=== PATIENT | female | born 1970 | race Caucasian/White ===

== ENCOUNTER 2017-07-08 10:00 | Emergency (ER) | payer SELFPAY, OTHER ==
[2017-07-08] MEDS: NORCO, ANEXSIA 5/325MG TABLET (HYDROcodone/ACETAMINOPHEN) PO (11:13)
== END 2017-07-08 12:37 | disposition home or self-care (01) ==
LOC: M ED 10:00
DX: S93.502A Unspecified sprain of left great toe, initial encounter (principal); S93.505A Unspecified sprain of left lesser toe(s), initial encounter; W22.8XXA Striking against or struck by other objects, initial encounter; Y92.018 Other place in single-family (private) house as the place of occurrence of the external cause; Z88.8 Allergy status to other drugs, medicaments and biological substances
CPT/HCPCS: 73630

== ENCOUNTER 2017-07-08 13:32 | Emergency (ER) | payer SELFPAY | END 2017-07-08 16:05 | disposition home or self-care (01) | LOC: M ED 13:32 | DX: T78.40XA Allergy, unspecified, initial encounter (principal); Y92.9 Unspecified place or not applicable; Y93.9 Activity, unspecified; F41.9 Anxiety disorder, unspecified; Z88.6 Allergy status to analgesic agent | CPT/HCPCS: 99283 ==

== ENCOUNTER 2017-11-01 21:03 | Emergency (ER) | payer BC ==
[2017-11-01] MEDS: KETOROLAC 30 MG/ML VIAL (J1885) IM (20:29)
== END 2017-11-01 21:42 | disposition home or self-care (01) ==
LOC: M ED 21:03
DX: S69.91XA Unspecified injury of right wrist, hand and finger(s), initial encounter (principal); W23.0XXA Caught, crushed, jammed, or pinched between moving objects, initial encounter; Y92.9 Unspecified place or not applicable; Y93.9 Activity, unspecified; Y99.9 Unspecified external cause status; Z85.528 Personal history of other malignant neoplasm of kidney; Z90.5 Acquired absence of kidney; Z88.6 Allergy status to analgesic agent; Z88.5 Allergy status to narcotic agent
CPT/HCPCS: J1885

== ENCOUNTER → 2017-12-27 | Outpatient (CLI) | payer BC | LOC: M WUC 18:47 | DX: M25.522 Pain in left elbow (principal) | CPT/HCPCS: 73080 ==

== ENCOUNTER 2018-03-12 11:08 | Emergency (ER) | payer BC | END 2018-03-12 13:20 | disposition home or self-care (01) | LOC: M ED 11:08 | DX: M25.562 Pain in left knee (principal); M79.672 Pain in left foot; Z85.528 Personal history of other malignant neoplasm of kidney; Z88.5 Allergy status to narcotic agent; Z88.8 Allergy status to other drugs, medicaments and biological substances | CPT/HCPCS: 73564 ==

== ENCOUNTER → 2018-04-04 | Outpatient (REF) | payer BC ==
[2018-04-04 20:26] LABS: BASO # 0.1 10^3/uL (0.0-0.2); BASO % 0.8 % (0.0-1.0); EOS # 0.2 10^3/uL (0.0-0.50); EOS % 2.8 % (0.0-3.0); HEMATOCRIT 46.5 % (36.0-47.0); HEMOGLOBIN 14.8 g/dl (12.0-15.5); IMMATURE GRANULOCYTE % 0.2 % (0-3.0); LYMPH # 1.9 10^3/uL (1.5-4.5); MEAN CORPUSCULAR HEMOGLOBIN 28.6 pg (27.0-33.0); MEAN CORPUSCULAR HGB CONC 31.8 g/dl (32.0-36.5); MEAN CORPUSCULAR VOLUME 89.9 fl (80.0-96.0); MONO # 0.4 10^3/uL (0.0-0.8); MONO % 6.1 % (0.0-5.0); NEUTROPHILS # 3.6 10^3/uL (1.8-7.7); NEUTROPHILS % 59.1 % (36.0-66.0); PLATELET COUNT, AUTOMATED 305 10^3/uL (150-450); RED BLOOD COUNT 5.17 10^6/uL (4.00-5.40); RED CELL DISTRIBUTION WIDTH 14.3 % (11.5-14.5); WHITE BLOOD COUNT 6.1 10^3/uL (4.0-10.0)
[2018-04-04 20:30] LABS: AMORPHOUS SEDIMENT MODERATE (NEGATIVE); APPEARANCE, URINE TURBID (CLEAR); BACTERIA, URINE AUTO NEGATIVE (NEGATIVE); BILIRUBIN, URINE AUTO NEGATIVE (NEGATIVE); BLOOD, URINE BLOOD NEGATIVE (NEGATIVE); COLOR, URINE AMBER (YELLOW); GLUCOSE, URINE (UA) AUTO NEGATIVE (NEGATIVE); KETONE, URINE AUTO NEGATIVE (NEGATIVE); LEUKOCYTE ESTERASE, URINE AUTO 2+ (NEGATIVE); MUCUS, URINE SMALL (NEGATIVE); NITRITE, URINE AUTO NEGATIVE (NEGATIVE); PROTEIN, URINE AUTO NEGATIVE (NEGATIVE); RBC, URINE AUTO 2 /HPF (0-3); SPECIFIC GRAVITY URINE AUTO 1.019 (1.002-1.035); SQUAMOUS EPITHELIAL CELL UR AU 7 /HPF (0-6); UROBILINOGEN, URINE AUTO 0.2 mg/dL (0.0-2.0); WBC, URINE AUTO 15 /HPF (0-3)
[2018-04-04 20:38] LABS: ALBUMIN/GLOBULIN RATIO 1.03 (1.00-1.93); ALKALINE PHOSPHATASE 74 U/L (45-117); ALT/SGPT 23 U/L (12-78); ANION GAP 10 MEQ/L (8-16); AST/SGOT 17 U/L (7-37); BILIRUBIN,TOTAL 0.6 MG/DL (0.2-1.0); BLOOD UREA NITROGEN 16 MG/DL (7-18); C REACTIVE PROTEIN QUANTITATIV 0.38 MG/DL (0.00-0.30); CALCIUM LEVEL 9.8 MG/DL (8.5-10.1); CARBON DIOXIDE LEVEL 26 MEQ/L (21-32); CHLORIDE LEVEL 106 MEQ/L (98-107); CHOLESTEROL LEVEL 195 MG/DL (<200); CHOLESTEROL RISK RATIO 4.062 (<5); CREATININE FOR GFR 1.03 MG/DL (0.55-1.30); FREE T4 1.03 NG/DL (0.76-1.46); GLOMERULAR FILTRATION RATE > 60.0 (>58); GLUCOSE, FASTING 92 MG/DL (70-100); HDL CHOLESTEROL 48 MG/DL (>40); LDL CHOLESTEROL 118 MG/DL (<100); NON-HDL-C 147 MG/DL; POTASSIUM SERUM 4.4 MEQ/L (3.5-5.1); SODIUM LEVEL 142 MEQ/L (136-145); TOTAL PROTEIN 7.9 GM/DL (6.4-8.2); TRIGLYCERIDES LEVEL 143 MG/DL (<150)
[2018-04-04 20:50] LABS: TOTAL 25(OH) VITAMIN D 21.7 NG/ML (30.0-100.0)
[2018-04-07 00:06] LABS: ANA (HEP2) Positive (.); Lyme Disease IgG/IgM Antibodie <0.91 ISR (0.00-0.90); Lyme Disease IgM Ab Quantitati <0.80 index (0.00-0.79)
== END ==
LOC: M SFHCADAM 11:28
DX: C64.2 Malignant neoplasm of left kidney, except renal pelvis (principal); E55.9 Vitamin D deficiency, unspecified; M25.562 Pain in left knee; E66.9 Obesity, unspecified; M79.672 Pain in left foot; M79.671 Pain in right foot
CPT/HCPCS: 80053

== ENCOUNTER 2018-04-25 16:30 | Emergency (ER) | payer BC ==
[2018-04-25] MEDS: IBUPROFEN 800 MG TAB PO (16:53)
== END 2018-04-25 17:57 | disposition home or self-care (01) ==
LOC: M ED 16:30
DX: S50.02XA Contusion of left elbow, initial encounter (principal); W00.9XXA Unspecified fall due to ice and snow, initial encounter; Y92.009 Unspecified place in unspecified non-institutional (private) residence as the place of occurrence of the external cause; Z88.8 Allergy status to other drugs, medicaments and biological substances; Z88.6 Allergy status to analgesic agent
CPT/HCPCS: 73080

== ENCOUNTER → 2018-04-25 | Outpatient (CLI) | payer BC | LOC: M LABDRWAD 13:49 | DX: C64.2 Malignant neoplasm of left kidney, except renal pelvis (principal) | CPT/HCPCS: 71046 ==

== ENCOUNTER → 2018-04-25 | Outpatient (REF) | payer BC ==
[2018-04-25 19:04] LABS: URIC ACID 5.5 MG/DL (2.6-6.0)
[2018-04-25 19:04] LABS: RHEUMATOID FACTOR QUANT < 10.0 IU/ML (<15.0)
[2018-04-25 19:43] LABS: ERYTHROCYTE SEDIMENTATION RATE 31 mm/hr (0-20)
[2018-04-28 10:08] LABS: CYCLIC CITRULLINATED PEPTIDE 7 units (0-19)
== END ==
LOC: M SFHCADAM 13:28
DX: M79.672 Pain in left foot (principal)
CPT/HCPCS: 84550

== ENCOUNTER → 2018-04-30 | Outpatient (REF) | payer BC ==
[2018-04-30 18:54] LABS: APPEARANCE, URINE CLOUDY (CLEAR); BACTERIA, URINE AUTO 1+ (NEGATIVE); BILIRUBIN, URINE AUTO NEGATIVE (NEGATIVE); BLOOD, URINE BLOOD NEGATIVE (NEGATIVE); COLOR, URINE YELLOW (YELLOW); GLUCOSE, URINE (UA) AUTO NEGATIVE (NEGATIVE); KETONE, URINE AUTO NEGATIVE (NEGATIVE); LEUKOCYTE ESTERASE, URINE AUTO NEGATIVE (NEGATIVE); MUCUS, URINE SMALL (NEGATIVE); NITRITE, URINE AUTO NEGATIVE (NEGATIVE); PROTEIN, URINE AUTO NEGATIVE (NEGATIVE); RBC, URINE AUTO 2 /HPF (0-3); SPECIFIC GRAVITY URINE AUTO 1.018 (1.002-1.035); SQUAMOUS EPITHELIAL CELL UR AU 15 /HPF (0-6); UROBILINOGEN, URINE AUTO 0.2 mg/dL (0.0-2.0); WBC, URINE AUTO 2 /HPF (0-3)
== END ==
LOC: M SMT 16:54
DX: C64.2 Malignant neoplasm of left kidney, except renal pelvis (principal)
CPT/HCPCS: 87186

== ENCOUNTER → 2018-05-27 | Outpatient (CLI) | payer BC ==
[~2018-05-27] MED LIST: DOCU10ELUD PO; IBUP200T2 PO; ISOVUE-370 76% 100ML VIAL (Q9967) As Ordered ONE; NAPR-885 PO; NO HISTORICAL MEDS; NORCOBULK PO; PERC5TAB PO; PERC5TAB12 PO; ROBA500T PO; TYLE325T5 PO
--- NOTE | 2018-05-29 07:28 | REP ---
Clinical: History of left renal neoplasm. Technique: Axial contrast enhanced images from the lung bases to the pubic symphysis using 100 ml Isovue 370 intravenous contrast material with coronal and sagittal re-formations. Precontrast and delayed images of the abdomen obtained. Comparison: 11/17/2014. Findings: Lung bases are clear. Visualized heart and pericardium normal. Liver, spleen, pancreas, bilateral adrenal glands and right kidney are normal. The patient is noted to be status post cholecystectomy and partial left nephrectomy. No obvious recurrent renal lesion or adenopathy appreciated. The enteric system is without obstruction or acute inflammatory process. Pelvis demonstrates normal bladder and age-appropriate uterus/adnexa. No ascites. No adenopathy. No free air. 1 cm fat containing periumbilical hernia unchanged. Abdominal aorta and vasculature without aneurysm or dissection. Musculoskeletal structures demonstrate degenerative changes without focal osseous abnormality. Impression: 1. Evidence for prior partial left nephrectomy without evidence for recurrence or metastatic disease. 2. Prior cholecystectomy. 3. No acute abdominopelvic pathology appreciated. Electronically Signed by Efe Bergman MD 05/29/2018 07:18 A
== END ==
LOC: M RAD 07:53
PROVIDERS: ATTEND Nurse Practitioner Women's Health
DX: C64.2 Malignant neoplasm of left kidney, except renal pelvis (principal)
CPT/HCPCS: 74178; Q9967

== ENCOUNTER → 2018-06-05 | Outpatient (REF) | payer BC ==
[~2018-06-05] MED LIST changes: -ISOVUE-370 76% 100ML VIAL (Q9967) As Ordered ONE
[2018-06-08 15:16] LABS: HPV HYBRID CAPTURE II Negative (Negative)
== END ==
LOC: M SFHCWAGY 14:12
PROVIDERS: ATTEND Nurse Practitioner Women's Health
DX: Z12.4 Encounter for screening for malignant neoplasm of cervix (principal)

== ENCOUNTER → 2018-06-05 | Outpatient (CLI) | payer BC ==
--- NOTE | 2018-06-05 18:26 | REPMRS ---
Patient History The patient states she had a clinical breast exam in 06/08 Patient is postmenopausal and has history of renal cancer at age 42. No known family history of cancer. Digital Woman Screen Mammo: June 05, 2018 - Exam #: [id number] Bilateral CC and MLO view(s) were taken. Technologist: Ju Mazariegos, Technologist Prior study comparison: July 31, 2014, digital woman screen mammo performed at [facility]. July 30, 2013, digital woman screen mammo performed at [facility]. FINDINGS: The breast tissue is heterogeneously dense. This may lower the sensitivity of mammography. There is a moderate amount of heterogeneously dense fibroglandular tissue which is fairly symmetric. There is no interval development of dominant mass, architectural distortion, or clustered microcalcification typical of malignancy. There has been no change in the appearance of the mammogram from the prior studies. 3-D tomosynthesis shows no additional findings. Assessment: BI-RADS/ACR category 1 mammogram. Negative. Recommendation Routine screening mammogram of both breasts in 1 year (for women over age 40). This patient's Lifetime Breast Cancer RIsk is estimated at 8.9 %. This mammogram was interpreted with the aid of an FDA-approved computer-aided dectection system. Electronically Signed By: Isma Robertson MD 06/05/18 [id number]
== END ==
LOC: M WHC 13:53
PROVIDERS: ATTEND Physician Assistant Medical
DX: Z12.31 Encounter for screening mammogram for malignant neoplasm of breast (principal); Z78.0 Asymptomatic menopausal state; Z85.528 Personal history of other malignant neoplasm of kidney

== ENCOUNTER → 2018-06-06 | Outpatient (CLI) | payer BC ==
--- NOTE | 2018-06-07 02:39 | REP ---
Clinical: Back pain and weakness . Technique: AP, lateral, bilateral oblique, and coned-down views. Findings: Alignment and lordosis is maintained. The vertebral bodies including transverse process and spinous processes are intact and there is no evidence for acute fracture / compression injury or subluxation. No evidence for spondylolysis or spondylolisthesis. Lateral views best demonstrate hypertrophic facet changes at L4-5 and L5-S1 along with mild endplate sclerosis and disc space narrowing at L5-S1. Impression: Mild degenerative changes at L5-S1. Electronically Signed by Efe Bergman MD 06/07/2018 02:30 A
== END ==
LOC: M ADAMS 13:22
PROVIDERS: ATTEND Physician Assistant Medical
DX: R20.2 Paresthesia of skin (principal); R53.1 Weakness; M51.36 Other intervertebral disc degeneration, lumbar region

== ENCOUNTER 2018-08-21 12:55 | Outpatient (RCR) | payer BC ==
[~2018-08-21 12:55] MED LIST changes: -DOCU10ELUD PO; +DOCU5LIQ PO
== END 2018-09-17 ==
LOC: M PT 12:55
PROVIDERS: ATTEND Physician Assistant Medical
DX: R20.2 Paresthesia of skin (principal)

== ENCOUNTER → 2018-08-22 | Outpatient (CLI) | payer BC ==
--- NOTE | 2018-08-22 13:02 | REP ---
Left femur: Four views. History: Left hip pain. Comparison left knee radiographs are from March 12, 2018. Findings: Left femoral head is smooth and rounded and hip joint spaces preserved. Periarticular soft tissues are intact. Femoral diaphysis and distal femur appear intact. A normal fabella is noted posterolaterally. Bones joints and soft tissues are unremarkable. Impression: Negative radiographs of the left femur. Electronically Signed by Kris Robertson MD 08/22/2018 12:53 P
== END ==
LOC: M ADAMS 11:43
PROVIDERS: ATTEND Physician Assistant Medical
DX: M25.552 Pain in left hip (principal)

== ENCOUNTER → 2018-08-28 | Outpatient (CLI) | payer BC ==
--- NOTE | 2018-08-29 08:16 | REP ---
MRI lumbar spine without contrast: History: Left foot drop. Rule out stenosis versus disc herniation. Low back pain. Comparison lumbar spine radiographs June 06, 2018. Comparison is made with imaging from CT study dated May 27, 2018. Technique: Sagittal and axial T1 and T2-weighted scans are acquired in the usual fashion with and without fat saturation. Sequences include spin echo, turbo spin-echo, and STIR imaging sequences. MRI findings: Lumbar vertebral body heights are preserved. There is straightening. Alignment is otherwise normal. No bony destructive lesion is seen. Cortical and medullary bone signal intensity are normal. There is no evidence of spondylolysis or spondylolisthesis. The tip of the conus medullaris is normal in position and appearance at the upper margin of L1. There is some cortical scarring along the posterolateral cortex of the left kidney noted incidentally. The patient has a history of partial left nephrectomy. No other extravertebral abnormality. Axial and sagittal images at the L1-L2 disc level show diffuse disc bulging mild in degree indenting the ventral margin of the thecal sac. No canal stenosis is seen. No neural foraminal lesion is noted. At L2-3, there is also diffuse disc bulging indenting the ventral margin of the thecal sac. This contributes to mild central canal stenosis along with developmentally short pedicles and mild ligamentum flavum hypertrophy as well as some dorsal epidural fat. The thecal sac and L2-3 measures 9 mm in the midline in anteroposterior dimension. No neural foraminal encroachment. At L3-4, there is mild central canal stenosis noted due to the same factors, diffuse disc bulging, ligamentum flavum hypertrophy, facet hypertrophy, and some dorsal epidural fat. The thecal sac measures 9 mm in AP dimension at the midline at L3-4. The osteoarthritic facet hypertrophy is more prominent bilaterally. It is a little more advanced on the left than the right. There is a left foraminal and left lateral disc protrusion at L3-4 which abuts the extradural nerve root and produces mild neural foraminal narrowing. At L4-5, there is minimal diffuse disc bulging indenting the thecal sac margin. Moderate osteoarthritic facet and ligamentum flavum hypertrophy are seen. Canal size is mildly narrowed. Midline AP dimension of the thecal sac is 9.5 mm. No focal disc protrusion is seen. No neural foraminal encroachment is observed. At L5-S1, there is mild facet hypertrophy. Central disc bulging is seen without thecal sac compression. There is minimal neural foraminal narrowing on the left. Impression: Degenerative spondylosis changes. Moderate osteoarthritic facet disease. Multilevel mild central canal stenosis L2-3 through L4-5. Left foraminal and left lateral disc protrusion at L3-4. Minimal left neural foraminal narrowing L5-S1. Electronically Signed by Kris Robertson MD 08/29/2018 06:30 P
== END ==
LOC: M RAD 17:28
PROVIDERS: ATTEND Physician Assistant
DX: M21.372 Foot drop, left foot (principal); M48.061 Spinal stenosis, lumbar region without neurogenic claudication; M51.26 Other intervertebral disc displacement, lumbar region; M47.816 Spondylosis without myelopathy or radiculopathy, lumbar region

== ENCOUNTER → 2019-06-06 | Outpatient (CLI) | payer BC ==
--- NOTE | 2019-06-06 17:23 | REPMRS ---
Patient History The patient states she had a clinical breast exam in 2019. No known family history of cancer. Digital Woman Screen Mammo: June 06, 2019 - Exam #: [id number] Bilateral CC and MLO view(s) were taken. Technologist: Kesha Lara, Technologist Prior study comparison: June 05, 2018, bilateral digital woman screen mammo performed at [facility]. July 31, 2014, digital woman screen mammo performed at [facility]. July 30, 2013, digital woman screen mammo performed at [facility]. FINDINGS: The breast tissue is heterogeneously dense. This may lower the sensitivity of mammography. There is a moderate amount of heterogeneously dense fibroglandular tissue which is fairly symmetric. There is no interval development of dominant mass, architectural distortion, or grouped microcalcification typical of malignancy. There has been no change in the appearance of the mammogram from the prior studies. 3-D tomosynthesis shows no additional findings. Assessment: BI-RADS/ACR category 0 mammogram, Incomplete: Need additional imaging evaluation and/or prior mammograms for comparison. Recommendation Ultrasound and special view mammogram of the right breast. This patient's Lifetime Breast Cancer RIsk is estimated at 8.7 %. This mammogram was interpreted with the aid of an FDA-approved computer-aided dectection system. Electronically Signed By: Isma Robertson MD 06/06/19 [id number]
== END ==
LOC: M WHC 11:06
PROVIDERS: ATTEND Nurse Practitioner Women's Health
DX: Z12.31 Encounter for screening mammogram for malignant neoplasm of breast (principal); N63.11 Unspecified lump in the right breast, upper outer quadrant

== ENCOUNTER → 2019-06-26 | Outpatient (REF) | payer BC | LOC: M SFHCPLAZ 18:03 | PROVIDERS: ATTEND Dermatology | DX: L85.9 Epidermal thickening, unspecified (principal); L82.1 Other seborrheic keratosis ==

== ENCOUNTER → 2019-07-01 | Outpatient (CLI) | payer BC ==
--- NOTE | 2019-07-01 12:27 | REP ---
DIGITAL DIAGNOSTIC RIGHT BREAST MAMMOGRAPHY WITH CAD AND FOCUSED RIGHT BREAST SONOGRAPHY: HISTORY: Screening mammography June 06, 2027 was BIRADS category 0 incomplete because of two nodular neodensity is in the upper outer quadrant for which diagnostic imaging was recommended. Comparison mammography June 05, 2018 and July 31, 2014. MAMMOGRAPHIC FINDINGS: Magnified focal spot compression CC, MLO, and true mediolateral projection images are obtained. The nodular opacities persist. The largest is more posterior in the upper outer quadrant measuring 10 mm in greatest diameter with a macro lobulated contour sharply circumscribed. The larger nodule is approximately 5 mm in diameter more anteriorly positioned in the upper outer quadrant. No other suspicious mammographic finding. SONOGRAPHIC FINDINGS: The right breast is scanned through the upper outer quadrant. At 10-o'clock, 4.5 cm from the nipple there is a 9 x 8 x 6 mm complex macrolobulated hypoechoic structure with some internal echoes. The lesion has well-defined back wall and demonstrates enhanced through transmission. It is most compatible with a complex cyst. It does not meet criteria of a simple cyst. At 9-o'clock position in the right breast, 5.7 cm from the nipple there is a 7 x 9 x 5 mm complex hypoechoic structure, which is associated with some acoustic shadowing and a more triangular shape. In the radial projection it appears taller than wide. IMPRESSION: BIRADS category 4 suspicious right breast imaging. Two nodular opacities felt to correspond with two hypoechoic structures sonographically. Ultrasound-guided needle biopsy and marker clip placement is recommended for both of these. Post placement mammography is recommended. This mammogram was interpreted with the aid of an FDA-approved computer-aided detection system. The patient letter being requested is m#4 . Electronically Signed by Kris Robertson MD 07/01/2019 07:58 P
== END ==
LOC: M RAD 09:03
PROVIDERS: ATTEND Nurse Practitioner Women's Health
DX: Z12.31 Encounter for screening mammogram for malignant neoplasm of breast (principal); N63.11 Unspecified lump in the right breast, upper outer quadrant; N63.15 Unspecified lump in the right breast, overlapping quadrants

== ENCOUNTER → 2019-07-07 | Outpatient (REF) | payer BC ==
[2019-07-07 16:21] LABS: PLATELET COUNT, AUTOMATED 333 10^3/uL (150-450)
[2019-07-07 16:32] LABS: INR 0.92; PROTHROMBIN TIME 12.1 SECONDS (11.8-14.0)
[2019-07-07 16:33] LABS: PARTIAL THROMBOPLASTIN TIME 30.6 SECONDS (25.0-38.4)
== END ==
LOC: M LABDRAW1 15:27
PROVIDERS: ATTEND Physician Assistant
DX: M47.27 Other spondylosis with radiculopathy, lumbosacral region (principal)

== ENCOUNTER → 2019-07-11 | Outpatient (CLI) | payer BC ==
[~2019-07-11] MED LIST changes: +ACET1TAB55 PO; +CYCL10TA PO; +ESTR625TA VG; +GABA-1171 PO; +MELO15TA28 PO; +VITAMIN D
--- NOTE | 2019-07-11 14:07 | REP ---
FOCUSED LEFT BREAST SONOGRAPHY: HISTORY: Palpable lump 2-o'clock position 5 cm from the nipple on clinician breast exam. Comparison is made with earlier ultrasound and mammography July 01, 2019. FINDINGS: Scanning in the region of the palpable lump at the 2-o'clock position 5 cm from the nipple today demonstrates normal fibroglandular background echotexture. No cyst or mass is seen sonographically. IMPRESSION: BIRADS category 1 negative findings.
== END ==
LOC: M WHC 11:14
PROVIDERS: ATTEND Surgery
DX: N63.20 Unspecified lump in the left breast, unspecified quadrant (principal)

== ENCOUNTER → 2019-07-15 | Outpatient (CLI) | payer BC ==
[~2019-07-15] MED LIST changes: +ESTR62CR PV
[2019-07-15 09:08] VITALS: BP 142/90
--- NOTE | 2019-07-15 13:25 | ROOPDOC ---
[facility] Report Of Operation Report of Operation DATE OF PROCEDURE: 07/15/19 PREPROCEDURE DIAGNOSES: two right breast lesions POSTPROCEDURE DIAGNOSES: right breast complex cyst at 10:00 and right hypoechoic lesion at 9:00 PROCEDURE: Ultrasound-guided right breast biopsy of the lesion at 9:00 and ultrasound-guided aspiration of complex cyst at 10:00 SURGEON: Marilyn Diggs CHARGE LOADER: ANESTHESIA: local ESTIMATED BLOOD LOSS: Approximately 1 mL. COMPLICATIONS: none REMARKS: Post-biopsy mammogram of the right breast was obtained and showed the clip. The clip, however was not in expected position of mammographically seen nodular opacity at 9:00 which suggest that the sonographic lesion did not correlate with mammographic findings. In addition, the nodular opacity at 10:00 persisted on post procedure mammogram sonographic lesion did not correlate with mammographic findings. Patient was informed about those findings. Postprocedural dressing was placed. DESCRIPTION OF PROCEDURE: Lidocaine 1% LOT [id number] Expiration 06/2020 Sodium Bicarbonate 8.4% LOT 03-018-[id number] Expiration 07/2020 Hydromark clip LOT [id number] Expiration 02/2022 REF 6970-16-77-[id number] Titanium Shape 3 (open spring) Bx device: Voxie [id number] x10 cm LOT HUEN 1024 Expiration 04/2022 Informed consent was obtained in the preop area. The most common risk and possible complications including bleeding, hematoma, bruising, infection, injury to surrounding structures were explained to the patient and she expressed understanding. Patient was taken to the procedure room and placed on the bed in the supine position with the right upper extremity placed above the head. Appropriate time out was done stating patients name, date of , and the procedure to be performed. The right breast was prepped and draped in the usual fashion. The ultrasound was used to confirm the location of the lesions in the right breast at 10:00 4.5 CFN which looked like a complex cyst and at 9:00 5.7 CFN which looked like complex hypoechoic structure with some acoustic shadowing and more triangular shape. Procedure was started focusing at 10:00 with aspiration of the lesion looking like a complex cyst. Plain Lidocaine 1% and 8.4% sodium bicarbonate 10:1 mix was used to numb the skin, the biopsy site and tissues along the anticipated biopsy tract. 18 G needle was used to aspirate fluid from the cystic structures. The fluid was bloody and was sent to pathology for cytological evaluation. The images from cyst aspiration and post aspiration were captured. No biopsy was performed at this site as the complex cyst completely collapsed. Next, our attention was turned toward the more triangular lesion at 9:00. Lidocaine 1% and 8.4% sodium bicarbonate 10:1 mix was used to numb the skin, the biopsy site and tissues along the anticipated biopsy tract. Small skin incision was made with blade number 11. BARD Marquee 14G cannula with introducer ([id number]) was inserted through the incision and advanced under the ultrasound guidance to position immediately adjacent to the lesion. Next, the introducer was removed and BARD Marquee 14G biopsy device was places in the cannula. Pre- biopsy imaging, and post-biopsy imaging were captured. Six core biopsies were taken at various levels of the lesion. Specimen was placed in formaldehyde, labeled with appropriate biopsy site and patient name, and sent to pathology for evaluation. Next, the biopsy device was withdrawn and a clip introducer was inserted into the biopsy site via the cannula. The open spring SHAPE 3 Hydromark clip was deployed under direct vision. Post-clip placement image was captured. Manual pressure over the biopsy cavity and tract was held after the clip introducer was withdrawn. No bleeding was noted upon removal of the pressure. Post-biopsy mammogram of the right breast was obtained and showed the clip. The clip, however was not in expected position of mammographically seen nodular opacity at 9:00 which suggest that the sonographic lesion did not correlate with mammographic findings. In addition, the nodular opacity at 10:00 persisted on post procedure mammogram sonographic lesion did not correlate with mammographic findings. Patient was informed about those findings. Postprocedural dressing was placed. Patient tolerated procedure well. Discharge instructions were discussed with the patient and she expressed understanding. MARILYN DIGGS DO Jul 15, 2019 13:25
--- NOTE | 2019-07-15 14:32 | REP ---
ULTRASOUND GUIDANCE RIGHT BREAST: HISTORY: Right breast biopsy times two. Sonographic guidance is provided to Dr. Wilkins who performed a cyst aspiration at 10- o'clock position and a ultrasound-guided biopsy at 9-o'clock position. HydroMARK clip placement at the 9-o'clock position biopsy site.
--- NOTE | 2019-07-15 14:34 | REP ---
DIGITAL DIAGNOSTIC UNILATERAL RIGHT BREAST MAMMOGRAPHY: TWO VIEWS. HISTORY: Marker clip placement views. Comparison mammography July 01, 2019 and June 06, 2019 showed two nodular opacities projecting in the upper outer quadrant of the right breast. Comparison sonography, July 01, 2019 showed two potential targets, one at 9-o'clock position and the other at 10-o'clock position. MAMMOGRAPHIC FINDINGS: There is a marker clip in the upper outer quadrant posteriorly. On the CC view, this appears to be in the area of the more posterior of the two nodular targets seen mammographically in good position. The more anterior of the two nodules is believed to be evident in the anterior third of the right breast upper outer quadrant, unchanged in position or appearance. This implies that it has not been sampled. IMPRESSION: Marker clip in good position relative to the more posterior of the two targets identified by previous mammography July 01, 2019. The more anterior nodule persists unchanged, implying that it has not been sampled.
== END ==
LOC: M WHCPRO 07:27
PROVIDERS: ATTEND Surgery
DX: N60.11 Diffuse cystic mastopathy of right breast (principal); R92.8 Other abnormal and inconclusive findings on diagnostic imaging of breast; R89.6 Abnormal cytological findings in specimens from other organs, systems and tissues; Z88.6 Allergy status to analgesic agent; Z88.5 Allergy status to narcotic agent

== ENCOUNTER 2020-01-19 17:29 | Emergency (ER) | payer OTHER ==
[~2020-01-19] VITALS: Ht 167.6 cm; Wt 95.2 kg
[~2020-01-19 17:29] MED LIST changes: +CYCL-707 PO; -CYCL10TA PO
[2020-01-19] MEDS ORDERED: KETOROLAC 60MG 2ML VIAL IM ONE (19:30)
[2020-01-19 20:23] VITALS: BP 128/76
--- NOTE | 2020-02-17 11:30 | REP ---
LEFT HAND SERIES CLINICAL: Injury. TECHNIQUE: AP, lateral, and bilateral oblique views of the left hand. FINDINGS: No obvious acute fracture or dislocation. Skeletal structures, joint spaces, and surrounding soft tissues are age appropriate. IMPRESSION: No acute fracture or dislocation appreciated. If the patient remains symptomatic consider reevaluation in 5-7 days. MTDD
== END 2020-01-19 20:20 | disposition home or self-care (01) ==
LOC: M ED 17:29
DX: S60.222A Contusion of left hand, initial encounter (principal); W23.0XXA Caught, crushed, jammed, or pinched between moving objects, initial encounter; Y92.018 Other place in single-family (private) house as the place of occurrence of the external cause; Z79.899 Other long term (current) drug therapy; Z88.5 Allergy status to narcotic agent; Z88.8 Allergy status to other drugs, medicaments and biological substances
CPT/HCPCS: 73130; 96372; 99284; J1885

== ENCOUNTER → 2020-01-29 | Outpatient (CLI) | payer OTHER ==
--- NOTE | 2020-02-20 14:56 | REP ---
LEFT BREAST ULTRASOUND HISTORY: Palpable lump 2 o'clock left breast. Real-time sonographic evaluation of the left breast performed in the region of 2 o'clock at a site of a reportedly palpable lump. In this region of the left breast, at 3 o'clock, is a 4-mm cyst, approximately 4 cm from the nipple. No cystic or solid nodule is seen in the region of 2 o'clock. No other sonographic findings are seen in this region. IMPRESSION: ACR 2 benign. In the region of 2 o'clock left breast at the site of the reported palpable abnormality, there is a 4-mm cyst at the 3 o'clock position 4 cm from the nipple. No other cystic or solid nodule is seen. Clinical correlation and follow-up is recommended. A negative ultrasound should not deter biopsy if there is a clinically suspicious palpable mass present. MTDD
--- NOTE | 2020-02-20 14:56 | REP ---
DIAGNOSTIC MAMMOGRAM RIGHT BREAST TECHNIQUE: Mammographic images of the right breast are performed in MLO and CC projections with 3D tomosynthesis. COMPARISON: Made with multiple prior exams, most recently 06/06/2019, 07/01/2019, and 07/15/2019. Since those exams, the patient has had ultrasound guided biopsy of two nodules in the upper outer quadrant, both results were benign. There is no family history of breast cancer. Tyrer-zick lifetime risk of breast cancer 8.6%. Moderate fibroglandular density appears essentially unchanged. Previously noted nodule in the posterior upper outer quadrant of the right breast contains a biopsy clip and is unchanged since the post biopsy mammogram of 07/15/2019. The more anterior nodule seen on the prior studies is no longer visualized and presumably represented a complex cyst. No new nodule or architectural distortion is seen. No clustered microcalcifications are seen. IMPRESSION: ACR 2 benign. Following biopsy of two nodules in the upper outer quadrant of the right breast, both results benign, the more anterior nodule is no longer visualized and presumably represented a complex cyst, which has resolved. The more posterior nodule is again visualized and contains a biopsy marking clip. There are no new abnormalities. Recommend follow-up bilateral mammogram May 2020. This mammogram was interpreted with the aid of an FDA approved computer-aided detection system. Last clinical breast exam was reportedly over one year ago. Patient letter 2. MTDD
== END ==
LOC: M WHC 14:15
PROVIDERS: ATTEND Surgery
DX: N63.10 Unspecified lump in the right breast, unspecified quadrant (principal); Z86.018 Personal history of other benign neoplasm
CPT/HCPCS: 76642; 77065; G0279

== ENCOUNTER → 2020-08-04 | Outpatient (REF) | LOC: M LAB 10:21 | PROVIDERS: ATTEND Nurse Practitioner Adult Health | DX: Z00.00 Encounter for general adult medical examination without abnormal findings (principal) ==

== ENCOUNTER → 2021-04-06 | Outpatient (CLI) | payer OTHER | LOC: M LABSMTC 09:26 | PROVIDERS: ATTEND Family Medicine | DX: Z11.52 Encounter for screening for COVID-19 (principal); Z20.822 Contact with and (suspected) exposure to COVID-19 ==

== ENCOUNTER 2021-07-14 15:45 | Emergency (ER) | payer OTHER ==
[~2021-07-14] VITALS: Ht 167.6 cm; Wt 87.3 kg
[2021-07-14] MEDS ORDERED: ACET32TAB PO (15:52)
[2021-07-14 16:45] VITALS: BP 133/88
== END 2021-07-14 16:45 | disposition home or self-care (01) ==
LOC: M ED 15:45
DX: S90.121A Contusion of right lesser toe(s) without damage to nail, initial encounter (principal); W22.8XXA Striking against or struck by other objects, initial encounter; Y92.018 Other place in single-family (private) house as the place of occurrence of the external cause; Z88.5 Allergy status to narcotic agent; Z88.8 Allergy status to other drugs, medicaments and biological substances

== ENCOUNTER 2021-07-30 14:24 | Emergency (ER) | payer OTHER ==
[~2021-07-30] VITALS: Ht 167.6 cm; Wt 96.3 kg
[~2021-07-30 14:24] MED LIST changes: +ACET32TAB PO
[2021-07-30 14:25] VITALS: BP 145/92
[2021-07-30] MEDS ORDERED: ACETAMINOPHEN TAB 650MG DOSE (2X325MG) PO ONE (15:15)
== END 2021-07-30 18:36 | disposition home or self-care (01) ==
LOC: M ED 14:24
DX: S80.12XA Contusion of left lower leg, initial encounter (principal); W00.0XXA Fall on same level due to ice and snow, initial encounter; Y92.89 Other specified places as the place of occurrence of the external cause; Z88.5 Allergy status to narcotic agent; Z88.8 Allergy status to other drugs, medicaments and biological substances

== ENCOUNTER 2021-11-19 14:59 | Emergency (ER) | payer OTHER ==
[~2021-11-19] VITALS: Ht 167.6 cm; Wt 92.6 kg
[2021-11-19] MEDS ORDERED: KETOROLAC 30 MG/ML 1ML VIAL IM ONE (15:50)
[2021-11-19] MEDS ORDERED: NEUR300C PO (16:00)
[2021-11-19 16:27] VITALS: BP 139/77
== END 2021-11-19 16:30 | disposition home or self-care (01) ==
LOC: M ED 14:59
DX: G89.29 Other chronic pain (principal); M54.50 Low back pain, unspecified; M79.605 Pain in left leg; M48.00 Spinal stenosis, site unspecified; Z85.528 Personal history of other malignant neoplasm of kidney; Z88.5 Allergy status to narcotic agent; Z88.8 Allergy status to other drugs, medicaments and biological substances
CPT/HCPCS: 96372; 99283; J1885

== ENCOUNTER 2021-12-19 11:19 | Emergency (ER) | payer OTHER ==
[~2021-12-19] VITALS: Ht 167.6 cm; Wt 92.6 kg
[~2021-12-19 11:19] MED LIST changes: +NEUR300C PO
[2021-12-19 11:20] VITALS: BP 136/84
[2021-12-19] MEDS ORDERED: ALEV220T22 PO (11:32)
[2021-12-19] MEDS ORDERED: PERCOCET 5MG/325MG TAB PO ONE (12:40)
[2021-12-19] MEDS ORDERED: GABA-282 PO (13:30)
== END 2021-12-19 13:37 | disposition home or self-care (01) ==
LOC: M ED 11:19
DX: M50.30 Other cervical disc degeneration, unspecified cervical region (principal); M54.12 Radiculopathy, cervical region; Z85.59 Personal history of malignant neoplasm of other urinary tract organ; Z88.5 Allergy status to narcotic agent; Z88.8 Allergy status to other drugs, medicaments and biological substances

== ENCOUNTER 2022-05-13 08:33 | Emergency (ER) | payer OTHER ==
[~2022-05-13] VITALS: Ht 167.6 cm; Wt 86.8 kg
[~2022-05-13 08:33] MED LIST changes: +ALEV220T22 PO; +GABA-282 PO
[2022-05-13 09:40] LABS: LIPASE 35 U/L (12-53)
[2022-05-13 09:41] LABS: BILIRUBIN,DIRECT 0.4 MG/DL (<0.4)
[2022-05-13 09:42] LABS: ALBUMIN 3.9 G/DL (3.2-5.2); ALKALINE PHOSPHATASE 57 U/L (46-116); ALT/SGPT 18 U/L (7.0-40); AST/SGOT 20 U/L (<34); BILIRUBIN,TOTAL 1.2 MG/DL (0.3-1.2); BLOOD UREA NITROGEN 27 MG/DL (9-23); CALCIUM LEVEL 9.3 MG/DL (8.5-10.1); CARBON DIOXIDE LEVEL 25 MMOL/L (20-31); CHLORIDE LEVEL 108 MMOL/L (98-107); CREATININE FOR GFR 0.64 MG/DL (0.55-1.30); GLOMERULAR FILTRATION RATE > 60.0 (>51); GLUCOSE, FASTING 117 MG/DL (60-100); POTASSIUM SERUM 4.2 MMOL/L (3.5-5.1); SODIUM LEVEL 142 MMOL/L (136-145); TOTAL PROTEIN 7.1 G/DL (5.7-8.2)
[2022-05-13] MEDS ORDERED: SUCRALFATE 1 GM TAB PO ONE (09:50)
[2022-05-13] MEDS ORDERED: PANTOPRAZOLE 40MG VIAL IV ONE (09:50)
[2022-05-13] MEDS ORDERED: GI COCKTAIL 50ML BTL(HYOSCYAMINE/MAALOX/LIDOCAINE VISCOUS)(1:3:1) PO ONE (09:50)
[2022-05-13] MEDS ORDERED: NS 1,000 ML IV ONE (09:50)
[2022-05-13] MEDS ORDERED: ONDANSETRON 4MG 2ML VIAL IV ONE (09:50)
[2022-05-13 10:31] LABS: BASO % 0.3 % (0.0-1.0); EOS % 0.3 % (0.0-3.0); HEMATOCRIT 44.2 % (36.0-47.0); HEMOGLOBIN 14.5 g/dl (12.0-15.5); LYMPH # 0.4 10^3/uL (1.5-5.0); LYMPH % 3.1 % (24.0-44.0); MEAN CORPUSCULAR HEMOGLOBIN 29.5 pg (27.0-33.0); MEAN CORPUSCULAR HGB CONC 32.8 g/dl (32.0-36.5); MEAN CORPUSCULAR VOLUME 89.8 fl (80.0-96.0); MONO # 0.3 10^3/uL (0.0-0.8); MONO % 2.2 % (2.0-8.0); NEUTROPHILS # 11.8 10^3/uL (1.5-8.5); NEUTROPHILS % 93.9 % (36.0-66.0); RED BLOOD COUNT 4.92 10^6/uL (4.00-5.40); WHITE BLOOD COUNT 12.5 10^3/uL (4.0-10.0)
[2022-05-13 10:51] LABS: PLATELET COUNT, AUTOMATED 219 10^3/uL (150-450)
[2022-05-13] MEDS ORDERED: ISOVUE-370 76% 100ML VIAL As Ordered ONE (10:58)
[2022-05-13] MEDS ORDERED: CARA1TAB6 PO (11:40)
[2022-05-13] MEDS ORDERED: ONDA4TAB6 PO (11:40)
[2022-05-13] MEDS ORDERED: OMEP-173 PO (11:40)
[2022-05-13 12:25] VITALS: BP 140/81
== END 2022-05-13 12:34 | disposition home or self-care (01) ==
LOC: M ED 08:33 → EDBD 08:33 → M ED 12:34
DX: R11.2 Nausea with vomiting, unspecified (principal); R10.9 Unspecified abdominal pain; M48.00 Spinal stenosis, site unspecified; Z90.49 Acquired absence of other specified parts of digestive tract; Z85.528 Personal history of other malignant neoplasm of kidney; Z88.5 Allergy status to narcotic agent; Z88.6 Allergy status to analgesic agent; Z79.899 Other long term (current) drug therapy
CPT/HCPCS: 74021; 74177; 80047; 80048; 80076; 83690; 85025; 87400; 87428; 96361; 96374; 96375; 99284; C9113; J2405

== ENCOUNTER 2022-05-31 10:13 | Emergency (ER) | payer OTHER ==
[~2022-05-31] VITALS: Ht 167.6 cm; Wt 85.9 kg
[~2022-05-31 10:13] MED LIST changes: +CARA1TAB6 PO; +OMEP-173 PO; +ONDA4TAB6 PO
[2022-05-31] MEDS ORDERED: CELE1CAP9 (10:41)
[2022-05-31] MEDS ORDERED: TIZA10TA (10:41)
[2022-05-31] MEDS ORDERED: KETOROLAC 30 MG/ML 1ML VIAL IM ONE (13:30)
[2022-05-31] MEDS ORDERED: ACETAMINOPHEN 325 MG TAB PO ONE (13:30)
[2022-05-31 14:55] VITALS: BP 162/90
[2022-05-31] MEDS ORDERED: KETO10TAB PO (15:04)
== END 2022-05-31 15:38 | disposition home or self-care (01) ==
LOC: M ED 10:13 → EDBD 10:13 → M ED 15:38
DX: S33.5XXA Sprain of ligaments of lumbar spine, initial encounter (principal); M54.16 Radiculopathy, lumbar region; M54.40 Lumbago with sciatica, unspecified side; X50.0XXA Overexertion from strenuous movement or load, initial encounter; Y99.0 Civilian activity done for income or pay; Z79.899 Other long term (current) drug therapy; Z88.5 Allergy status to narcotic agent; Z88.8 Allergy status to other drugs, medicaments and biological substances

== ENCOUNTER → 2022-06-11 | Outpatient (CLI) | payer OTHER ==
[~2022-06-11] MED LIST changes: +CELE1CAP9; +KETO10TAB PO; +TIZA10TA
== END ==
LOC: M LABSMTC 10:52
PROVIDERS: ATTEND Anesthesiology
DX: Z01.812 Encounter for preprocedural laboratory examination (principal); Z11.52 Encounter for screening for COVID-19

== ENCOUNTER → 2022-06-27 | Outpatient (CLI) | payer OTHER ==
[2022-06-27 16:45] LABS: BLOOD UREA NITROGEN 15 MG/DL (9-23); CREATININE FOR GFR 0.77 MG/DL (0.55-1.30); GLOMERULAR FILTRATION RATE > 60.0 (>51)
== END ==
LOC: M LAB 15:28
PROVIDERS: ATTEND Orthopaedic Surgery
DX: M48.02 Spinal stenosis, cervical region (principal)

== ENCOUNTER → 2022-07-03 | Outpatient (CLI) | payer OTHER ==
[2022-07-03 13:56] LABS: BASO # 0.1 10^3/uL (0.0-0.2); BASO % 1.2 % (0.0-1.0); EOS # 0.2 10^3/uL (0.0-0.5); EOS % 3.9 % (0.0-3.0); HEMATOCRIT 42.9 % (36.0-47.0); HEMOGLOBIN 13.7 g/dl (12.0-15.5); LYMPH # 1.6 10^3/uL (1.5-5.0); MEAN CORPUSCULAR HEMOGLOBIN 29.8 pg (27.0-33.0); MEAN CORPUSCULAR HGB CONC 31.9 g/dl (32.0-36.5); MEAN CORPUSCULAR VOLUME 93.3 fl (80.0-96.0); MONO # 0.4 10^3/uL (0.0-0.8); MONO % 7.3 % (2.0-8.0); NEUTROPHILS # 3.4 10^3/uL (1.5-8.5); NEUTROPHILS % 59.4 % (36.0-66.0); PLATELET COUNT, AUTOMATED 278 10^3/uL (150-450); WHITE BLOOD COUNT 5.7 10^3/uL (4.0-10.0)
[2022-07-03 14:24] LABS: C REACTIVE PROTEIN QUANTITATIV < 0.40 MG/DL (<1.0)
[2022-07-03 14:26] LABS: RHEUMATOID FACTOR QUANT 5.7 IU/ML (<14); THYROID STIMULATING HORMONE 1.007 uIU/ML (0.55-4.78)
[2022-07-03 14:27] LABS: FREE T4 1.21 NG/DL (0.89-1.76)
[2022-07-03 14:31] LABS: ERYTHROCYTE SEDIMENTATION RATE 27 mm/hr (0-30)
[2022-07-04 15:08] LABS: ANTI DOUBLE STRAND-DNA AB 5 IU/mL (0-9); ANTINUCLEAR ANTIBODIES DIRECT Positive (Negative); RNP ANTIBODIES <0.2 AI (0.0-0.9); SJOGREN'S ANTI SS-A 7.3 AI (0.0-0.9); SJOGREN'S ANTI SS-B <0.2 AI (0.0-0.9); SMITH ANTIBODIES <0.2 AI (0.0-0.9)
== END ==
LOC: M PLALAB 10:28
PROVIDERS: ATTEND Orthopaedic Surgery
DX: M47.892 Other spondylosis, cervical region (principal)

== ENCOUNTER → 2022-08-03 | Outpatient (CLI) | payer OTHER ==
[2022-08-03 11:26] LABS: AMORPHOUS SEDIMENT SMALL (NEGATIVE); APPEARANCE, URINE HAZY (CLEAR); BACTERIA, URINE AUTO 1+ (NEGATIVE); BILIRUBIN, URINE AUTO NEGATIVE (NEGATIVE); BLOOD, URINE BLOOD NEGATIVE (NEGATIVE); COLOR, URINE YELLOW (YELLOW); GLUCOSE, URINE (UA) AUTO NEGATIVE (NEGATIVE); KETONE, URINE AUTO NEGATIVE (NEGATIVE); LEUKOCYTE ESTERASE, URINE AUTO TRACE (NEGATIVE); MUCUS, URINE SMALL (NEGATIVE); NITRITE, URINE AUTO NEGATIVE (NEGATIVE); PROTEIN, URINE AUTO NEGATIVE (NEGATIVE); RBC, URINE AUTO 1 /HPF (0-3); SPECIFIC GRAVITY URINE AUTO 1.021 (1.002-1.035); SQUAMOUS EPITHELIAL CELL UR AU 8 /HPF (0-6); UROBILINOGEN, URINE AUTO 0.2 mg/dL (0.0-2.0); WBC, URINE AUTO 4 /HPF (0-3)
[2022-08-03 11:31] LABS: CHOLESTEROL RISK RATIO 3.32 (<5); HDL CHOLESTEROL 51.1 MG/DL (>40); LDL CHOLESTEROL 87.7 MG/DL (<100); NON-HDL-C 118.9 MG/DL; PERCENT SATURATION 21.6 % (13.2-45.0)
[2022-08-03 11:32] LABS: COMPLEMENT C3 140.9 MG/DL (90.0-170.0); COMPLEMENT C4 24.7 MG/DL (12-36)
[2022-08-03 11:33] LABS: FREE T4 1.22 NG/DL (0.89-1.76); THYROID STIMULATING HORMONE 2.147 uIU/ML (0.55-4.78)
[2022-08-03 12:11] LABS: HEMOGLOBIN A1c 5.5 % (4.0-6.0)
== END ==
LOC: M PLALAB 08:19
PROVIDERS: ATTEND Physician Assistant Medical
DX: E66.9 Obesity, unspecified (principal); E55.9 Vitamin D deficiency, unspecified; M50.30 Other cervical disc degeneration, unspecified cervical region; G89.29 Other chronic pain

== ENCOUNTER 2022-09-21 07:33 | Emergency (ER) | payer OTHER ==
[~2022-09-21] VITALS: Ht 167.6 cm; Wt 89.8 kg
[2022-09-21] MEDS ORDERED: GABA-1171 (07:55)
[2022-09-21] MEDS ORDERED: CELE1CAP9 (07:55)
[2022-09-21] MEDS ORDERED: KETOROLAC 30 MG/ML 1ML VIAL IM ONE (09:30)
[2022-09-21] MEDS ORDERED: METH-1165 PO (10:35)
[2022-09-21 10:45] VITALS: BP 178/96
== END 2022-09-21 11:04 | disposition home or self-care (01) ==
LOC: M ED 07:33
DX: M54.32 Sciatica, left side (principal); M06.9 Rheumatoid arthritis, unspecified; M48.00 Spinal stenosis, site unspecified; Z85.528 Personal history of other malignant neoplasm of kidney; Z88.5 Allergy status to narcotic agent; Z88.6 Allergy status to analgesic agent
CPT/HCPCS: 96372; 99283; J1885

== ENCOUNTER 2022-11-27 09:52 | Emergency (ER) | payer OTHER ==
[~2022-11-27] VITALS: Ht 167.6 cm; Wt 84.5 kg
[~2022-11-27 09:52] MED LIST changes: +GABA-1171; +METH-1165 PO
[2022-11-27] MEDS ORDERED: diazePAM 5MG TABLET PO ONE (10:55)
[2022-11-27] MEDS ORDERED: LIDOCAINE 5% (LIDODERM) PATCH TD ONE (10:55)
[2022-11-27] MEDS ORDERED: ACETAMINOPHEN 500 MG TAB PO ONE (10:55)
[2022-11-27] MEDS ORDERED: METH-1164 PO (12:32)
[2022-11-27] MEDS ORDERED: TRAM50TA2 PO (12:32)
[2022-11-27 12:48] VITALS: BP 145/75; TEMP 97.4; O2SAT 98
== END 2022-11-27 12:51 | disposition home or self-care (01) ==
LOC: M ED 09:52
DX: M51.36 Other intervertebral disc degeneration, lumbar region (principal); I10 Essential (primary) hypertension; M06.9 Rheumatoid arthritis, unspecified; Z79.899 Other long term (current) drug therapy; Z88.6 Allergy status to analgesic agent; Z88.5 Allergy status to narcotic agent

== ENCOUNTER 2022-12-11 15:37 | Emergency (ER) | payer OTHER ==
[~2022-12-11] VITALS: Ht 167.6 cm; Wt 89.4 kg
[~2022-12-11 15:37] MED LIST changes: +METH-1164 PO; +TRAM50TA2 PO
[2022-12-11 15:38] VITALS: BP 148/98; TEMP 97.8; O2SAT 98
== END 2022-12-11 19:29 | disposition home or self-care (01) ==
LOC: M ED 15:37
DX: S60.221A Contusion of right hand, initial encounter (principal); S60.211A Contusion of right wrist, initial encounter; W22.8XXA Striking against or struck by other objects, initial encounter; Y92.89 Other specified places as the place of occurrence of the external cause; Y93.89 Activity, other specified; Y99.0 Civilian activity done for income or pay; M48.00 Spinal stenosis, site unspecified; M51.36 Other intervertebral disc degeneration, lumbar region; M06.9 Rheumatoid arthritis, unspecified; Z88.5 Allergy status to narcotic agent; Z88.6 Allergy status to analgesic agent; Z79.899 Other long term (current) drug therapy

== ENCOUNTER → 2022-12-21 | Outpatient (REF) | payer OTHER | LOC: M SFHCWAGY 17:36 | PROVIDERS: ATTEND Nurse Practitioner Family | DX: Z12.4 Encounter for screening for malignant neoplasm of cervix (principal); N95.2 Postmenopausal atrophic vaginitis ==

== ENCOUNTER → 2022-12-21 | Outpatient (CLI) | payer OTHER | LOC: M WHC 15:05 | PROVIDERS: ATTEND Nurse Practitioner Family | DX: Z12.31 Encounter for screening mammogram for malignant neoplasm of breast (principal) ==

== ENCOUNTER → 2023-01-01 | Outpatient (CLI) | payer OTHER | LOC: M RAD 17:13 | PROVIDERS: ATTEND Physician Assistant Medical | DX: M25.561 Pain in right knee (principal) ==

== ENCOUNTER → 2023-01-29 | Outpatient (CLI) | payer OTHER ==
[~2023-01-29] MED LIST changes: +CELE0.09; -CELE1CAP9
== END ==
LOC: M PLAIMG 08:28
PROVIDERS: ATTEND Physician Assistant
DX: M54.50 Low back pain, unspecified (principal); M54.16 Radiculopathy, lumbar region

== ENCOUNTER → 2023-02-26 | Outpatient (CLI) | payer OTHER ==
[~2023-02-26] MED LIST changes: +PRED20TA PO
[2023-02-26 17:03] LABS: BACTERIA, URINE AUTO NEGATIVE (NEGATIVE); MUCUS, URINE SMALL (NEGATIVE); RBC, URINE AUTO 0 /HPF (0-3); SQUAMOUS EPITHELIAL CELL UR AU 3 /HPF (0-6); WBC, URINE AUTO 9 /HPF (0-3)
[2023-02-26 17:09] LABS: BASO # 0.1 10^3/uL (0.0-0.2); BASO % 0.9 % (0.0-1.0); EOS # 0.2 10^3/uL (0.0-0.5); EOS % 2.2 % (0.0-3.0); HEMATOCRIT 40.3 % (36.0-47.0); HEMOGLOBIN 13.4 g/dl (12.0-15.5); LYMPH # 2.2 10^3/uL (1.5-5.0); LYMPH % 23.8 % (24.0-44.0); MEAN CORPUSCULAR HEMOGLOBIN 29.8 pg (27.0-33.0); MEAN CORPUSCULAR HGB CONC 33.3 g/dl (32.0-36.5); MEAN CORPUSCULAR VOLUME 89.8 fl (80.0-96.0); MONO # 0.5 10^3/uL (0.0-0.8); MONO % 5.6 % (2.0-8.0); NEUTROPHILS # 6.2 10^3/uL (1.5-8.5); NEUTROPHILS % 67.4 % (36.0-66.0); PLATELET COUNT, AUTOMATED 271 10^3/uL (150-450); RED BLOOD COUNT 4.49 10^6/uL (4.00-5.40); WHITE BLOOD COUNT 9.2 10^3/uL (4.0-10.0)
[2023-02-26 17:14] LABS: C REACTIVE PROTEIN QUANTITATIV < 0.40 MG/DL (<1.0)
[2023-02-26 17:20] LABS: ALBUMIN 3.9 G/DL (3.2-5.2); ALKALINE PHOSPHATASE 57 U/L (46-116); ALT/SGPT 14 U/L (7.0-40); AST/SGOT 12 U/L (<34); BILIRUBIN,TOTAL 0.4 MG/DL (0.3-1.2); BLOOD UREA NITROGEN 19 MG/DL (9-23); CALCIUM LEVEL 9.1 MG/DL (8.5-10.1); CARBON DIOXIDE LEVEL 24 MMOL/L (20-31); CHLORIDE LEVEL 109 MMOL/L (98-107); CHOLESTEROL LEVEL 145 MG/DL (<200); CHOLESTEROL RISK RATIO 3.51 (<5); GLOMERULAR FILTRATION RATE > 60.0 (>51); GLUCOSE, FASTING 85 MG/DL (60-100); HDL CHOLESTEROL 41.2 MG/DL (>40); LDL CHOLESTEROL 67.8 MG/DL (<100); NON-HDL-C 103.8 MG/DL; SODIUM LEVEL 140 MMOL/L (136-145); TOTAL 25(OH) VITAMIN D 27.8 NG/ML (20.0-100.0); TOTAL PROTEIN 6.8 G/DL (5.7-8.2); TRIGLYCERIDES LEVEL 180 MG/DL (<150)
[2023-02-26 17:24] LABS: ERYTHROCYTE SEDIMENTATION RATE 23 mm/hr (0-30)
[2023-02-28 23:10] LABS: ANA (HEP2) Negative (.); ANTI DOUBLE STRAND-DNA AB 4 IU/mL (0-9); ANTINUCLEAR ANTIBODIES DIRECT Positive (Negative); RNP ANTIBODIES <0.2 AI (0.0-0.9); SJOGREN'S ANTI SS-A >8.0 AI (0.0-0.9); SJOGREN'S ANTI SS-B <0.2 AI (0.0-0.9); SMITH ANTIBODIES <0.2 AI (0.0-0.9)
== END ==
LOC: M LAB 16:04
PROVIDERS: ATTEND Nurse Practitioner Family
DX: R76.8 Other specified abnormal immunological findings in serum (principal); C64.2 Malignant neoplasm of left kidney, except renal pelvis; E55.9 Vitamin D deficiency, unspecified; Z13.220 Encounter for screening for lipoid disorders

== ENCOUNTER 2023-07-10 12:06 | Emergency (ER) | payer OTHER ==
[~2023-07-10] VITALS: Ht 167.6 cm; Wt 82.3 kg
[2023-07-10] MEDS: traMADol 50 MG TAB PO ONE (15:25)
[2023-07-10] MEDS: methocarbamoL 500 MG TAB PO ONE (15:25)
[2023-07-10] MEDS: predniSONE 20 MG TAB PO ONE (15:25)
[2023-07-10] MEDS ORDERED: PRED20TA PO (16:27)
[2023-07-10] MEDS ORDERED: TRAM50TA2 PO (16:27)
[2023-07-10] MEDS ORDERED: METH-1164 PO (16:27)
[2023-07-10 16:45] VITALS: BP 168/78
[2023-07-10 16:52] VITALS: TEMP 97.3; O2SAT 100
== END 2023-07-10 17:00 | disposition home or self-care (01) ==
LOC: EDBD 12:06 → M ED 12:06
DX: M51.9 Unspecified thoracic, thoracolumbar and lumbosacral intervertebral disc disorder (principal); M06.9 Rheumatoid arthritis, unspecified; Z88.5 Allergy status to narcotic agent; Z88.6 Allergy status to analgesic agent
CPT/HCPCS: 72131; 99284; J7512

== ENCOUNTER → 2023-07-24 | Outpatient (CLI) | payer OTHER | LOC: M PAIN 08:00 | PROVIDERS: ATTEND Nurse Practitioner Family | DX: M51.16 Intervertebral disc disorders with radiculopathy, lumbar region (principal); G89.29 Other chronic pain; M54.2 Cervicalgia; M48.00 Spinal stenosis, site unspecified; Z85.528 Personal history of other malignant neoplasm of kidney; Z79.899 Other long term (current) drug therapy; Z88.5 Allergy status to narcotic agent; Z88.6 Allergy status to analgesic agent ==

== ENCOUNTER → 2023-09-20 | Outpatient (CLI) | payer OTHER ==
[~2023-09-20] MED LIST changes: +ISOVUE-M 300 61% 15ML VIAL As Ordered ONE; +LIDOCAINE 1% SDV 30ML VIAL As Ordered ONE; +diazePAM 5MG TABLET As Ordered ONE; +methylPREDNISolone SUSP 40MG/ML 1ML VIAL (DEPO MEDROL) As Ordered ONE
== END ==
LOC: M PAIN 14:30
PROVIDERS: ATTEND Anesthesiology
DX: M51.16 Intervertebral disc disorders with radiculopathy, lumbar region (principal); G89.29 Other chronic pain; Z79.899 Other long term (current) drug therapy; Z88.5 Allergy status to narcotic agent; Z88.6 Allergy status to analgesic agent
CPT/HCPCS: 62323; J1010; Q9967

== ENCOUNTER → 2023-10-31 | Outpatient (CLI) | payer OTHER ==
[~2023-10-31] MED LIST changes: -ISOVUE-M 300 61% 15ML VIAL As Ordered ONE; -LIDOCAINE 1% SDV 30ML VIAL As Ordered ONE; +ONDA-282 PO; -ONDA4TAB6 PO; -diazePAM 5MG TABLET As Ordered ONE; -methylPREDNISolone SUSP 40MG/ML 1ML VIAL (DEPO MEDROL) As Ordered ONE
== END ==
LOC: M PAIN 14:30
PROVIDERS: ATTEND Anesthesiology
DX: M54.12 Radiculopathy, cervical region (principal); Z85.528 Personal history of other malignant neoplasm of kidney; Z79.899 Other long term (current) drug therapy; Z88.5 Allergy status to narcotic agent; Z88.6 Allergy status to analgesic agent

== ENCOUNTER → 2023-11-26 | Outpatient (CLI) | payer OTHER | LOC: M PLAIMG 13:11 | PROVIDERS: ATTEND Anesthesiology | DX: M54.12 Radiculopathy, cervical region (principal) ==

== ENCOUNTER 2024-01-04 10:12 | Emergency (ER) | payer OTHER ==
[~2024-01-04] VITALS: Ht 167.6 cm; Wt 97.4 kg
[2024-01-04 11:42] LABS: BASO # 0.1 10^3/uL (0.0-0.2); BASO % 0.8 % (0.0-1.0); EOS # 0.2 10^3/uL (0.0-0.5); EOS % 3.3 % (0.0-3.0); HEMATOCRIT 46.6 % (36.0-47.0); LYMPH # 1.8 10^3/uL (1.5-5.0); MEAN CORPUSCULAR HEMOGLOBIN 29.5 pg (27.0-33.0); MEAN CORPUSCULAR HGB CONC 32.2 g/dl (32.0-36.5); MEAN CORPUSCULAR VOLUME 91.7 fl (80.0-96.0); MONO # 0.4 10^3/uL (0.0-0.8); MONO % 6.3 % (2.0-8.0); NEUTROPHILS # 3.6 10^3/uL (1.5-8.5); NEUTROPHILS % 60.4 % (36.0-66.0); PLATELET COUNT, AUTOMATED 243 10^3/uL (150-450); RED BLOOD COUNT 5.08 10^6/uL (4.00-5.40)
[2024-01-04 12:00] LABS: LIPASE 45 U/L (12-53)
[2024-01-04 12:01] LABS: AMYLASE 58 U/L (30-118)
[2024-01-04 12:02] LABS: ALBUMIN 4.1 G/DL (3.2-5.2); ALKALINE PHOSPHATASE 60 U/L (46-116); ALT/SGPT 14 U/L (7.0-40); AST/SGOT 21 U/L (<34); BILIRUBIN,DIRECT 0.2 MG/DL (<0.4); BILIRUBIN,TOTAL 0.8 MG/DL (0.3-1.2); BLOOD UREA NITROGEN 15 MG/DL (9-23); CALCIUM LEVEL 9.7 MG/DL (8.5-10.1); CARBON DIOXIDE LEVEL 26 MMOL/L (20-31); CHLORIDE LEVEL 109 MMOL/L (98-107); CREATININE FOR GFR 0.73 MG/DL (0.55-1.30); GLOMERULAR FILTRATION RATE > 60.0 (>51); GLUCOSE, FASTING 95 MG/DL (60-100); POTASSIUM SERUM 4.7 MMOL/L (3.5-5.1); SODIUM LEVEL 142 MMOL/L (136-145); TOTAL PROTEIN 7.3 G/DL (5.7-8.2)
[2024-01-04] MEDS ORDERED: ISOVUE-370 76% 100ML VIAL As Ordered ONE (13:03)
[2024-01-04] MEDS: ACETAMINOPHEN *IV* 1,000 MG in IV 1 EA IV ONE (15:16)
[2024-01-04 15:43] VITALS: BP 161/81; TEMP 96.9; O2SAT 98
== END 2024-01-04 15:50 | disposition home or self-care (01) ==
LOC: M ED 10:12
DX: R10.31 Right lower quadrant pain (principal); I10 Essential (primary) hypertension; Z85.528 Personal history of other malignant neoplasm of kidney; Z88.8 Allergy status to other drugs, medicaments and biological substances; Z79.52 Long term (current) use of systemic steroids; Z79.899 Other long term (current) drug therapy
CPT/HCPCS: 74177; 80048; 80076; 81001; 82150; 83605; 83690; 85025; 96365; 99284; J0131; Q9967

== ENCOUNTER → 2024-01-30 | Outpatient (CLI) | payer OTHER ==
[2024-01-30 11:20] LABS: BASO # 0.1 10^3/uL (0.0-0.2); BASO % 1.4 % (0.0-1.0); EOS # 0.2 10^3/uL (0.0-0.5); EOS % 4.2 % (0.0-3.0); HEMATOCRIT 47.4 % (36.0-47.0); HEMOGLOBIN 15.4 g/dl (12.0-15.5); LYMPH # 1.4 10^3/uL (1.5-5.0); MEAN CORPUSCULAR HEMOGLOBIN 29.3 pg (27.0-33.0); MEAN CORPUSCULAR HGB CONC 32.5 g/dl (32.0-36.5); MEAN CORPUSCULAR VOLUME 90.3 fl (80.0-96.0); MONO # 0.3 10^3/uL (0.0-0.8); MONO % 6.3 % (2.0-8.0); NEUTROPHILS # 2.9 10^3/uL (1.5-8.5); NEUTROPHILS % 59.1 % (36.0-66.0); PLATELET COUNT, AUTOMATED 274 10^3/uL (150-450); RED BLOOD COUNT 5.25 10^6/uL (4.00-5.40)
[2024-01-30 11:35] LABS: HEMOGLOBIN A1c 5.5 % (4.0-6.0)
[2024-01-30 11:51] LABS: FREE T4 1.11 NG/DL (0.89-1.76)
[2024-01-30 11:52] LABS: THYROID STIMULATING HORMONE 1.213 uIU/ML (0.55-4.78)
[2024-01-30 11:53] LABS: ALBUMIN 3.9 G/DL (3.2-5.2); ALKALINE PHOSPHATASE 64 U/L (46-116); ALT/SGPT 13 U/L (7.0-40); AST/SGOT 10 U/L (<34); BILIRUBIN,TOTAL 0.7 MG/DL (0.3-1.2); BLOOD UREA NITROGEN 16 MG/DL (9-23); CALCIUM LEVEL 10.1 MG/DL (8.5-10.1); CARBON DIOXIDE LEVEL 28 MMOL/L (20-31); CHLORIDE LEVEL 108 MMOL/L (98-107); CHOLESTEROL LEVEL 182 MG/DL (<200); CHOLESTEROL RISK RATIO 3.81 (<5); CREATININE FOR GFR 0.77 MG/DL (0.55-1.30); GLOMERULAR FILTRATION RATE > 60.0 (>51); GLUCOSE, FASTING 97 MG/DL (60-100); HDL CHOLESTEROL 47.7 MG/DL (>40); LDL CHOLESTEROL 97.3 MG/DL (<100); NON-HDL-C 134.3 MG/DL; POTASSIUM SERUM 4.1 MMOL/L (3.5-5.1); SODIUM LEVEL 143 MMOL/L (136-145); TOTAL PROTEIN 7.1 G/DL (5.7-8.2); TRIGLYCERIDES LEVEL 185 MG/DL (<150)
== END ==
LOC: M LAB 10:16
PROVIDERS: ATTEND Nurse Practitioner Family
DX: E55.9 Vitamin D deficiency, unspecified (principal); E78.2 Mixed hyperlipidemia; R76.8 Other specified abnormal immunological findings in serum; Z13.1 Encounter for screening for diabetes mellitus

== ENCOUNTER → 2024-02-18 | Outpatient (CLI) | payer OTHER ==
[~2024-02-18] MED LIST changes: +GABA-1172 PO; -GABA-282 PO
== END ==
LOC: M PAIN 09:45
PROVIDERS: ATTEND Nurse Practitioner Family
DX: M54.2 Cervicalgia (principal); M79.10 Myalgia, unspecified site; M79.641 Pain in right hand; G89.29 Other chronic pain; Z79.899 Other long term (current) drug therapy; Z88.5 Allergy status to narcotic agent; Z88.6 Allergy status to analgesic agent

== ENCOUNTER 2024-03-05 16:28 | Emergency (ER) | payer OTHER ==
[~2024-03-05] VITALS: Ht 167.6 cm; Wt 90.3 kg
[2024-03-05 20:57] VITALS: TEMP 98.8
[2024-03-05] MEDS: IBUPROFEN 800 MG TAB PO ONE (21:07)
[2024-03-05] MEDS ORDERED: IBUP-1022 PO (22:11)
[2024-03-05] MEDS ORDERED: DICL20GE TP (22:12)
[2024-03-05 22:23] VITALS: BP 137/78; O2SAT 98
== END 2024-03-05 22:27 | disposition home or self-care (01) ==
LOC: M ED 16:28
DX: M65.341 Trigger finger, right ring finger (principal); Z88.8 Allergy status to other drugs, medicaments and biological substances; Z79.1 Long term (current) use of non-steroidal anti-inflammatories (NSAID); Z79.899 Other long term (current) drug therapy

== ENCOUNTER 2024-03-09 15:39 | Emergency (ER) | payer OTHER ==
[~2024-03-09] VITALS: Ht 167.6 cm; Wt 89.5 kg
[~2024-03-09 15:39] MED LIST changes: +DICL20GE TP; +IBUP-1022 PO
[2024-03-09] MEDS: KETOROLAC 60MG 2ML VIAL IM ONE (19:28)
[2024-03-09] MEDS ORDERED: CYCL-707 PO (20:31)
[2024-03-09 20:55] VITALS: BP 176/83; TEMP 97.2; O2SAT 98
== END 2024-03-09 20:58 | disposition home or self-care (01) ==
LOC: M ED 15:39 → EDBD 15:39 → M ED 20:58
DX: M54.50 Low back pain, unspecified (principal); M48.061 Spinal stenosis, lumbar region without neurogenic claudication; Z88.5 Allergy status to narcotic agent; Z88.8 Allergy status to other drugs, medicaments and biological substances; Z79.1 Long term (current) use of non-steroidal anti-inflammatories (NSAID); Z79.899 Other long term (current) drug therapy
CPT/HCPCS: 96372; 99284; J1885

== ENCOUNTER → 2024-03-26 | Outpatient (CLI) | payer OTHER | LOC: M SOG 07:51 | PROVIDERS: ATTEND Orthopaedic Surgery | DX: M50.30 Other cervical disc degeneration, unspecified cervical region (principal) ==

== ENCOUNTER → 2024-03-27 | Outpatient (CLI) | payer OTHER | LOC: M WHC 09:28 | PROVIDERS: ATTEND Nurse Practitioner Family | DX: Z12.31 Encounter for screening mammogram for malignant neoplasm of breast (principal); R92.323 Mammographic fibroglandular density, bilateral breasts ==

== ENCOUNTER → 2024-04-21 | Outpatient (CLI) | payer OTHER | LOC: M PAIN 17:00 | PROVIDERS: ATTEND Nurse Practitioner Family | DX: M54.2 Cervicalgia (principal); M79.10 Myalgia, unspecified site; M79.641 Pain in right hand; G89.29 Other chronic pain; Z79.899 Other long term (current) drug therapy; Z88.6 Allergy status to analgesic agent; Z88.5 Allergy status to narcotic agent ==

== ENCOUNTER 2024-08-10 09:33 | Emergency (ER) | payer OTHER ==
[~2024-08-10] VITALS: Ht 167.6 cm; Wt 89.7 kg
[2024-08-10] MEDS ORDERED: KETOROLAC 30 MG/ML 1ML VIAL IV ONE (12:20)
[2024-08-10] MEDS: predniSONE 20 MG TAB PO ONE (12:26)
[2024-08-10] MEDS: KETOROLAC 30 MG/ML 1ML VIAL IM ONE (12:30)
[2024-08-10] MEDS ORDERED: KETO10TAB PO (13:09)
[2024-08-10] MEDS ORDERED: PRED10TA2 PO (13:09)
[2024-08-10 13:22] VITALS: BP 189/88; TEMP 98.2; O2SAT 100
== END 2024-08-10 13:23 | disposition home or self-care (01) ==
LOC: M ED 09:33
DX: M54.12 Radiculopathy, cervical region (principal); Z88.5 Allergy status to narcotic agent; Z88.6 Allergy status to analgesic agent; Z79.2 Long term (current) use of antibiotics; Z79.52 Long term (current) use of systemic steroids
CPT/HCPCS: 96372; 99283; J1885; J7512

== ENCOUNTER 2024-08-12 11:12 | Emergency (ER) | payer OTHER ==
[~2024-08-12] VITALS: Ht 167.6 cm; Wt 86.8 kg
[~2024-08-12 11:12] MED LIST changes: +PRED10TA2 PO
[2024-08-12] MEDS: ACETAMINOPHEN 325 MG TAB PO ONE (16:16)
[2024-08-12] MEDS: KETOROLAC 30 MG/ML 1ML VIAL IM ONE (18:31)
[2024-08-12] MEDS: diazePAM 5MG TABLET PO ONE (18:31)
[2024-08-12] MEDS: LIDOCAINE 5% (LIDODERM) PATCH TD ONE (18:32)
[2024-08-12 19:08] VITALS: BP 149/71; TEMP 98; O2SAT 97
[2024-08-12] MEDS ORDERED: METH-1165 PO (19:22)
== END 2024-08-12 19:31 | disposition home or self-care (01) ==
LOC: EDBD 11:12 → M ED 11:12
DX: M46.1 Sacroiliitis, not elsewhere classified (principal); Z88.5 Allergy status to narcotic agent; Z88.6 Allergy status to analgesic agent; Z79.2 Long term (current) use of antibiotics; Z79.52 Long term (current) use of systemic steroids; Z79.899 Other long term (current) drug therapy
CPT/HCPCS: 73521; 96372; 99284; J1885

== ENCOUNTER → 2025-04-29 | Outpatient (REF) | payer OTHER ==
[~2025-04-29] MED LIST changes: -IBUP-1022 PO; +IBUP600T42 PO
[2025-05-01 12:37] LABS: HPV APTIMA Not Detected (Not Detected)
== END ==
LOC: M SFHCWAGY 12:49
PROVIDERS: ATTEND Physician Assistant
DX: Z12.4 Encounter for screening for malignant neoplasm of cervix (principal); N95.2 Postmenopausal atrophic vaginitis

== ENCOUNTER → 2025-04-29 | Outpatient (CLI) | payer OTHER | LOC: M WHC 10:36 | PROVIDERS: ATTEND Physician Assistant | DX: Z12.31 Encounter for screening mammogram for malignant neoplasm of breast (principal); R92.323 Mammographic fibroglandular density, bilateral breasts ==